=== PATIENT | female | born 1975 | race African-American/Black ===

== ENCOUNTER 2017-08-23 02:11 | Emergency (ER) | payer SELFPAY ==
[2017-08-23 02:15] VITALS: BP 137/63; PULSE 101; RESP 20; TEMP 98; O2SAT 100
[2017-08-23 02:32] VITALS: BP 124/65; PULSE 101; RESP 24; O2SAT 100
[2017-08-23 02:37] VITALS: RESP 16; O2SAT 100
[2017-08-23 02:46] LABS: AUTOMATED NEUTROPHIL # 2.5 TH/MM3 (1.8-7.7); BASOPHIL # 0.1 TH/MM3 (0-0.2); BASOPHIL % 0.9 % (0.0-2.0); EOSINOPHIL # 0.2 TH/MM3 (0-0.4); EOSINOPHIL % 2.9 % (0.0-4.0); HEMATOCRIT 40.3 % (35.0-46.0); HEMOGLOBIN 13.1 GM/DL (11.6-15.3); LYMPH % 52.4 % (9.0-44.0); MEAN CELL VOLUME 89.3 FL (80.0-100.0); MEAN CORPUSCULAR HEMOGLOBIN 29.1 PG (27.0-34.0); MEAN CORPUSCULAR HGB CONC 32.6 % (32.0-36.0); MEAN PLATELET VOLUME 8.3 FL (7.0-11.0); MONO % 11.5 % (0.0-8.0); MONOCYTE # 0.9 TH/MM3 (0-0.9); NEUT % 32.3 % (16.0-70.0); PLATELET COUNT 286 TH/MM3 (150-450); RED BLOOD COUNT 4.52 MIL/MM3 (4.00-5.30); WHITE BLOOD COUNT 7.6 TH/MM3 (4.0-11.0)
[2017-08-23] MEDS ORDERED: MORPHINE SULFATE 4 MG/ML INJ IV PUSH ONE (03:00)
[2017-08-23] MEDS ORDERED: METOCLOPRAMIDE HCL 10 MG/2 ML VIAL IV PUSH ONE (03:00)
[2017-08-23] MEDS ORDERED: SODIUM CHLOR 0.9% 1000 ML INJ 1,000 ML IV ONE (03:00)
[2017-08-23 03:04] LABS: ALBUMIN 3.2 GM/DL (3.4-5.0); ALT (GPT) 33 U/L (10-53); AST (GOT) 20 U/L (15-37); BICARBONATE 24.7 MEQ/L (21.0-32.0); BLOOD UREA NITROGEN 12 MG/DL (7-18); C-REACTIVE PROTEIN 2.65 MG/DL (0.00-0.30); CALCIUM 8.7 MG/DL (8.5-10.1); CHLORIDE 106 MEQ/L (98-107); CREATININE 1.03 MG/DL (0.50-1.00); GLOMERULAR FILTRATION RATE 59 ML/MIN (>89); GLUCOSE,RANDOM 135 MG/DL (74-106); SODIUM (NA) 142 MEQ/L (136-145)
--- NOTE | 2017-08-23 03:05 | PD ---
HPI Chief Complaint: Abdominal Pain Time Seen by Provider: 02:24 Travel History International Travel<30 days: No Contact w/Intl Traveler<30days: No Traveled to known affect area: No History of Present Illness HPI The patient is a 42 year old female who presents to the [facility] emergency department with a history of abdominal pain that was sudden in onset 30-40 minutes prior to arrival. The patient reports that she last ate at 10 PM. She denies ever having a pain like this previously. She reports the pain is in the center of her abdomen just above the umbilicus. The patient reports that the pain is constant and sharp in character. She denies any alleviating or aggravating factors. She denies any problems recently with food intolerances. She denies having any symptoms of acid reflux or heartburn although she was diagnosed with acid reflux any years ago. She denies being on any medications for this currently. She reports having nausea without vomiting. She denies having any recent fevers. She denies having any dysuria, hematuria, urinary urgency, or frequency. She denies having any unusual vaginal bleeding or discharge. The patient's last menstrual cycle reportedly ended on August 16. On review of systems otherwise, the patient denies having any recent cough or congestion, neck pain, chest pain, shortness of breath, or neurologic symptoms. FOR[facility]LY [facility] Past Medical History Narrative Medical The patient's past medical history is significant for acid reflux diagnosed many years ago. Medical History: Denies Significant Hx Diminished Hearing: No Immunizations Current: Yes ?: Not Tubal Ligation: Yes Past Surgical History Narrative Surgical The patient's past surgical history is significant for bilateral tubal ligation , cholecystectomy. Cholecystectomy: Yes Social History Alcohol Use: Yes Tobacco Use: No Substance Use: No Allergies-Medications (Allergen,Severity, Reaction): Coded Allergies: No Known Allergies (Unverified , 08/23/17) Reported Meds & Prescriptions Reported Meds & Active Scripts Active Reglan (Metoclopramide HCl) 5 Mg Tab 5 Mg PO QID PRN Review of Systems Except as stated in HPI: all other systems reviewed are Neg General / Constitutional: No: Fever Eyes: No: Visual changes HENT: No: Headaches Cardiovascular: No: Chest Pain or Discomfort Respiratory: No: Shortness of Breath Gastrointestinal: Positive: Nausea, Abdominal Pain, Indigestion, No: Vomiting, Diarrhea, Hematochezia, Changes in Bowel Habits, Loss of Appetite Genitourinary: No: Dysuria Musculoskeletal: No: Pain Skin: No Rash Neurologic: No: Weakness Psychiatric: No: Depression Endocrine: No: Polydipsia Hematologic/Lymphatic: No: Easy Bruising Physical Exam Narrative General: The patient is a well-developed well-nourished female, uncomfortable appearing on arrival, holding her abdomen. She is intermittently belching. Head and Neck exam: Head is normocephalic atraumatic. Eyes: EOMI, pupils are equal round and reactive to light. Nose: Midline septum with pink mucous membranes Mouth: Dentition unremarkable. Moist mucus membranes. Posterior oropharynx is not erythematous. No tonsillar hypertrophy. Uvula midline. Airway patent. Neck: No palpable lymphadenopathy. No nuchal rigidity. No thyromegaly. Cardiovascular: Regular rate and rhythm without murmurs, gallops, or rubs. No pulse deficit to the extremities on simultaneous auscultation and palpation of her radial artery. Lungs: Clear to auscultation bilaterally. No wheezes, rhonchi, or rales. Abdomen: Soft, with reported diffuse tenderness on palpation most prominent in the area just above the umbilicus. The patient has abdominal distention due to obesity. This makes it difficult to palpate for any organomegaly or masses. No palpable hernia. Decreased bowel sounds are audible. No specific point tenderness on palpation of her McBurney's point. Negative Albert sign. No guarding, rebound, or rigidity. Extremities: No clubbing, cyanosis, or edema. 2+ pulses in all 4 extremities. No calf tenderness on palpation. Back: No spinous process tenderness to palpation. No costovertebral angle tenderness to palpation. Neurologic Exam: Grossly nonfocal. Skin Exam: No rash noted. Intact skin that is warm and dry. Data Data Last Documented VS Vital Signs Date Time Temp Pulse Resp B/P (MAP) Pulse Ox O2 Delivery O2 Flow Rate FiO2 08/23/17 05:05 114 20 131/87 (102) 100 Room Air 08/23/17 03:45 99.1 Orders Orders Complete Blood Count With Diff (08/23/17 02:32) Comprehensive Metabolic Panel (08/23/17 02:32) C-Reactive Protein (Crp) (08/23/17 02:32) Lipase (08/23/17 02:32) Urinalysis - C+S If Indicated (08/23/17 02:32) Iv Access Insert/Monitor (08/23/17 02:32) Ecg Monitoring (08/23/17 02:32) Oximetry (08/23/17 02:32) Ed Urine Pregnancytest Poc (08/23/17 02:32) Ct Abd/Pel W Iv Contrast(Rout) (08/23/17 02:50) Sodium Chlor 0.9% 1000 Ml Inj (Ns 1000 M (08/23/17 03:00) Morphine Inj (Morphine Inj) (08/23/17 03:00) Metoclopramide Inj (Reglan Inj) (08/23/17 03:00) Iohexol 350 Inj (Omnipaque 350 Inj) (08/23/17 04:07) Oral Rehydration (08/23/17 04:52) Labs Laboratory Tests Test 08/23/17 02:30 08/23/17 03:00 White Blood Count 7.6 TH/MM3 Red Blood Count 4.52 MIL/MM3 Hemoglobin 13.1 GM/DL Hematocrit 40.3 % Mean Corpuscular Volume 89.3 FL Mean Corpuscular Hemoglobin 29.1 PG Mean Corpuscular Hemoglobin Concent 32.6 % Red Cell Distribution Width 14.0 % Platelet Count 286 TH/MM3 Mean Platelet Volume 8.3 FL Neutrophils (%) (Auto) 32.3 % Lymphocytes (%) (Auto) 52.4 % Monocytes (%) (Auto) 11.5 % Eosinophils (%) (Auto) 2.9 % Basophils (%) (Auto) 0.9 % Neutrophils # (Auto) 2.5 TH/MM3 Lymphocytes # (Auto) 4.0 TH/MM3 Monocytes # (Auto) 0.9 TH/MM3 Eosinophils # (Auto) 0.2 TH/MM3 Basophils # (Auto) 0.1 TH/MM3 CBC Comment DIFF FINAL Differential Comment Blood Urea Nitrogen 12 MG/DL Creatinine 1.03 MG/DL Random Glucose 135 MG/DL Total Protein 7.7 GM/DL Albumin 3.2 GM/DL Calcium Level 8.7 MG/DL Alkaline Phosphatase 89 U/L Aspartate Amino Transf (AST/SGOT) 20 U/L Alanine Aminotransferase (ALT/SGPT) 33 U/L Total Bilirubin 0.5 MG/DL Sodium Level 142 MEQ/L Potassium Level 3.3 MEQ/L Chloride Level 106 MEQ/L Carbon Dioxide Level 24.7 MEQ/L Anion Gap 11 MEQ/L Estimat Glomerular Filtration Rate 59 ML/MIN C-Reactive Protein 2.65 MG/DL Lipase 124 U/L Urine Color YELLOW Urine Turbidity HAZY Urine pH 6.0 Urine Specific [place] 1.030 Urine Protein TRACE mg/dL Urine Glucose (UA) NEG mg/dL Urine Ketones NEG mg/dL Urine Occult Blood NEG Urine Nitrite NEG Urine Bilirubin NEG Urine Urobilinogen 2.0 MG/DL Urine Leukocyte Esterase TRACE Urine RBC 3 /hpf Urine WBC 1 /hpf Urine Squamous Epithelial Cells 1 /hpf Urine Mucus MANY /lpf Microscopic Urinalysis Comment CULT NOT INDICATED MDM Medical Decision Making Medical Screen Exam Complete: Yes Emergency Medical Condition: Yes Medical Record Reviewed: Yes Differential Diagnosis Pancreatitis, versus bowel obstruction, versus ileus, versus ectopic Narrative Course During the course of the patient's emergency department visit, the patient's history, examination, and differential diagnosis were reviewed with the patient. The patient was placed on a manager cardiac with oximetry and frequent blood pressure monitoring. The patient had IV access obtained and blood work sent for analysis. The patient was initially provided normal saline 1 L IV fluid bolus, morphine 4 mg IV, Reglan 5 mg IV. On reexamination the patient was reportedly feeling improved. The patient's laboratory studies were reviewed and remarkable for white count of 7.6, hemoglobin 13.1, platelets 286 with lymphocytes 52.4, monocytes 11.5 CMP is remarkable for a potassium of 3.3, creatinine 1.03, glucose 135, C- reactive protein 2.65, lipase 124. Urinalysis shows trace leukocyte esterase, many mucus, culture not indicated. Radiology studies were reviewed and remarkable for a CT scan of the abdomen and pelvis that shows a possible mild localized ileus in the upper abdomen, otherwise unremarkable. The patient was started on a p.o. challenge. Patient was able to tolerate this well. Patient's abdominal pain was improved. The patient will be discharged home. The patient was instructed to push fluids and get plenty of rest. The patient was given a prescription for Reglan at discharge. The patient is resting comfortably and feels better, is alert and in no distress. The patient's results and examination findings were discussed with the patient. The repeat examination is unremarkable and benign. The history, exam, diagnostic testing, and current condition do not suggest any significant pathology to warrant further testing, continued ED treatment, admission, or surgical evaluation at this point. The vital signs have been stable. The patient does not have uncontrollable pain, intractable vomiting, or other significant symptoms. The patient's condition is stable and appropriate for discharge. The patient will pursue further outpatient evaluation with a primary care physician or other designated or consulting physician as indicated in the discharge instructions. The patient is instructed to report back to the emergency department immediately for reexamination in the mean time if he/ she develops any new or worsening signs or symptoms. The patient expressed understanding and was agreeable with this plan. Diagnosis Primary Impression: Abdominal pain Qualified Codes: R10.84 - Generalized abdominal pain Additional Impression: Ileus, unspecified Referrals: Primary Care Physician 2 days Patient Instructions: Abdominal Pain (ED), General Instructions, Ileus (ED) Med/Other Pt SpecificInfo: Prescription(s) given Scripts Metoclopramide (Reglan) 5 Mg Tab 5 MG PO QID Y for NAUSEA OR VOMITING, #12 TAB 0 Refills Prov: Susan Tyler MD 08/23/17 Disposition: 01 DISCHARGE HOME Condition: Stable Susan Tyler MD August 23, 2017 03:05
[2017-08-23 03:06] LABS: ALKALINE PHOSPHATASE 89 U/L (45-117); TOTAL BILIRUBIN ADULT 0.5 MG/DL (0.2-1.0); TOTAL PROTEIN 7.7 GM/DL (6.4-8.2)
[2017-08-23 03:39] LABS: BILIRUBIN, URINE NEG (NEG); BLOOD, URINE NEG (NEG); GLUCOSE,URINE NEG (NEG); KETONE, URINE NEG (NEG); MUCUS URINE MANY /lpf (OCC); NITRITE,URINE NEG (NEG); SQUAMOUS EPITHELIAL CELL URINE 1 /hpf (0-5); URINE COLOR YELLOW (YELLW/STRAW); URINE LEUKOCYTE ESTERASE TRACE (NEG)
[2017-08-23 03:45] VITALS: BP 119/70; PULSE 108; RESP 20; TEMP 99.1; O2SAT 99
[2017-08-23] MEDS ORDERED: IOHEXOL 350 MG/ML 10 ML VIAL (for RAD DIAG) IVCONTRAST ONE (04:07)
--- NOTE | 2017-08-23 04:47 | RADRPT ---
EXAM DATE: 08/23/2017 4:24 AM EDT AGE/SEX: 42 years / Female INDICATIONS: Abdomen pain. CLINICAL DATA: This is the patient's initial encounter. Patient reports that signs and symptoms have been present for 1 day and indicates a pain score of 5/10. MEDICAL/SURGICAL HISTORY: None. Tubal ligation. Cholecystectomy. ORAL CONTRAST: No oral contrast ingested. RADIATION DOSE: 27.15 CTDI (mGy) ; Patient body habitus COMPARISON: No prior exams available for comparison. TECHNIQUE: Multiple contiguous axial images were obtained through the abdomen and pelvis following b olus infusion of 100 ml Omnipaque 350 (iohexol) nonionic water-soluble contrast as a single exam do se. No oral contrast ingested. Using automated exposure control and adjustment of the mA and/or kV a ccording to patient size, the radiation dose was kept as low as reasonably achievable to obtain optim al diagnostic quality images. FINDINGS: Abdomen CT: The liver, spleen, pancreas, kidneys, adrenals are unremarkable. There is no evidence for any appreci able pathological adenopathy, free fluid, or bowel obstruction. There is evidence for prior cholecys tectomy. There is a loop of small bowel in the mid upper abdomen measures 2.8 cm in size slightly pro minent possibly localized ileus. Pelvic CT: There is no evidence for mass, abscess formation, or any significant adenopathy within the pelvis. Th ere is a tiny amount of fluid in the cul-de-sac. CONCLUSION: Possible mild localized ileus upper abdomen and otherwise unremarkable. Electronically signed by: Aston Veliz MD 08/23/2017 4:45 AM EDT
[2017-08-23 05:05] VITALS: BP 131/87; PULSE 114; RESP 20; O2SAT 100
[2017-08-23] MEDS ORDERED: REGL5TAB PO (05:26)
[2017-08-23 05:30] VITALS: RESP 20
== END 2017-08-23 06:37 | disposition home or self-care (01) ==
LOC: NEPE 02:11
DX: K56.7 Ileus, unspecified (principal)
CPT/HCPCS: 74177; 80053; 81001; 83690; 84703; 85025; 86140; 96361; 96374; 96375; 99284; J2270; J2765; J7030; Q9967